=== PATIENT | male | born 1965 | race Caucasian/White ===

== ENCOUNTER 2021-04-06 07:48 | Outpatient (CLI) | payer BC, SELFPAY ==
--- NOTE | 2021-04-06 07:59 | ECG_ITS ---
Measurements Intervals [place] Rate: 58 P: 60 W[place]: 184 QRS: 8 QRSD: 120 T: 38 QT: 379 QTc: 374 Interpretive Statements SINUS BRADYCARDIA RIGHT BUNDLE BRANCH BLOCK TYPE 3 BRUGADA PATTERN (NON-DIAGNOSTIC) [COVED/SADDLEBACK ST ELEVATION > 0.1mV IN 2 OF V1-3] NO PREVIOUS ECG AVAILABLE FOR COMPARISON Electronically Signed On 04-06-2021 12:26:34 MANAGER ED by Pako Connor M.D.
== END 2021-04-06 07:49 | disposition home or self-care (01) ==
LOC: ANHSURGERY 07:53
PROVIDERS: PCP Internal Medicine; Visit Provider Urology
DX: E78.5 Hyperlipidemia, unspecified (principal); R00.1 Bradycardia, unspecified; I45.10 Unspecified right bundle-branch block; R94.31 Abnormal electrocardiogram [ECG] [EKG]
CPT/HCPCS: 93005

== ENCOUNTER 2021-04-08 00:31 | Day surgery (SDC) | payer BC, SELFPAY ==
[2021-04-02 11:12] VITALS: BMI 27.8
--- NOTE | 2021-04-02 11:21 | PC.NURSE ---
Report to the Outpatient Waiting Room, entrance under the green pavilion located off [facility], at time 6:00 on date 04/08/21. OR Time: 7:30. - You and your visitor will be asked a series of questions to screen for COVID 19 for your protection. - A mask is required within the hospital. One visitor will be allowed to accompany the patient into the hospital. Patients visitor will be instructed to remain with patient at all times or leave the building. We will allow the visitor to come back to the postoperative area when patient is ready. Preoperative COVID Testing Requirements: No COVID Test needed if: (proof is required; if not received patient will have Rapid Test prior to entry) - Patient has received COVID Vaccine at least 14 days prior to procedure date or - Patient has positive COVID test result within last 90 days of surgery date. COVID Test needed if above criteria is not met Patients may have clear liquids (water, carbonated beverages, clear teas, apple juice) until 3 hours prior to surgery (4:30) with a maximum of 20 ounces. - No food from midnight until time of surgery Take the following medications with a SIP of water the morning of surgery: ATENOLOL Medications to discontinue per physician: VITAMINS/SUPPLEMENTS Date to take last dose: 04/04/21 STOP PLAVIX 7 DAYS PRIOR TO PROCEDURE Please no make-up, nail spanish, hairspray, perfume, deodorant, or body powder the day of surgery. No jewelry (including any body piercings) or valuables the day of surgery, leave them at home. Please take a shower or bath the night before, or the morning of, surgery with an antibacterial soap. Wear comfortable, loose fitting clothing. - Jewelry must be removed prior to entering the operating room. Rings and piercings that are not removed may be cut off. - The hospital will not accept responsibility for valuables. - Please leave all valuables, including medications, at home the day of surgery. If you are going home after surgery, a licensed corporate driver must drive you home. - NO public transportation without another adult. - We recommend that an adult stay with you for 24 hours following discharge. - We also recommend that you do not drive, make important decision, drink alcoholic beverages, or take any drugs that were not prescribed by your health care provider for at least 24 hours after your discharge time. Follow any additional instructions given to you from your surgeon. Telephone instructions given to CHEMA NALLELY and asked if any additional questions and then verbalized understanding. Patient advised to call surgeon office or pre surgery nurse liaison [phone] if any additional questions.
[2021-04-08] VITALS (9 sets, daily range): BP systolic 105–193; BP diastolic 58–96; PULSE 54–61; RESP 10–18; TEMP 36.1–36.6; O2SAT 98–100
--- NOTE | 2021-04-08 06:28 | WPDHPUPDATE1 ---
History and Physical Update Update Date/Time: 04/08/21 06:28 History and Physical has been reviewed, including an updated exam of the patient. There are NO changes in the patient's condition. Risks, benefits, and alternatives have been discussed and questions answered. Patient agrees to proceed with procedure.
[2021-04-08] MEDS: LACTATED RINGERS 1,000 ML 30 ML IV CONT ×2 (06:30→08:42)
--- NOTE | 2021-04-08 07:09 | P.PNAN_ITS ---
Anes - Initial Pre Proc Eval Procedure: Operation Date: 04/08/21 07:30 Proposed Procedures p Urolift - Lawrence Calle MD Date/Time: 04/08/21 07:09 Surgeon: Lawrence Calle MD Pre Op Diagnosis: bph Patient Data Age: 55 Gender: M Height: 1.83 m Weight: 95.2 kg Last Vital Signs Temp 36.1 C L 04/08/21 06:10 Pulse 61 04/08/21 06:10 Resp 16 04/08/21 06:10 BP 155/80 H 04/08/21 06:10 Pulse Ox 98 04/08/21 06:10 Allergies Allergy/AdvReac Type Severity Reaction Status Date / Time No Known Allergies Allergy Unverified 04/08/21 06:14 Home Medications Medication Instructions Recorded Confirmed Type atenolol 12.5 mg PO DAILY 04/02/21 04/08/21 History clopidogrel [Plavix] 75 mg PO DAILY 04/02/21 04/08/21 History ezetimibe 10 mg PO DAILY 04/02/21 04/08/21 History fenofibric acid (choline) 135 mg PO DAILY 04/02/21 04/08/21 History [Trilipix] omega 9-xin-bgi-fish oil [Fish Oil] 1 cap PO BID 04/02/21 04/08/21 History ramipril 10 mg PO DAILY 04/02/21 04/08/21 History rosuvastatin [Crestor] 20 mg PO DAILY 04/02/21 04/08/21 History Patient hx anesthesia problems: none Family hx anesthesia problems: none Results Review: All pre-operative results and documents have been reviewed as part of the pre-operative evaluation. [facility] Past Medical History Medical History CAD (coronary artery disease) Hyperlipidemia Hypertension Surgical History Surgical History Stented coronary artery Social History Social History Smoking status: Never smoker Smokeless tobacco user: chewing tobacco Alcohol intake: current Drinks per week: 12 Alcohol use details: BEER Substance use: never Substance use type: does not use Living arrangements: with family Spiritual care concerns: No Anes - Eval Final PreProcedure Day of Procedure 04/08/21 07:09 Patient weight: overweight Heart: regular rate and rhythm Lungs: clear to auscultation Airway: Mallampati scale class II Neurological: alert and oriented Last oral intake: >/= 8 hours ASA classification: III Emergent: no Anesthetic plan: proceed Anesthesia type and monitoring: general LMA and standard monitoring Results Review: All pre-operative results and documents have been reviewed as part of the pre-operative evaluation. Informed Consent: The patient's anesthetic plan and its attendant risks and benefits were discussed with the patient/family/POA. Questions were solicited and answers provided to the satisfaction of the patient/family/POA.
[2021-04-08] MEDS: ceFAZolin 2 GM/D5W 50 ML 2 GM/50 ML BAG IVPB (07:23)
[2021-04-08] MEDS: LIDOCAINE HCL 2% GEL UROJET 10 ML PKG MUCOUS MEM (07:40)
--- NOTE | 2021-04-08 07:50 | P.OP_ITS ---
Procedure Note - Detailed Date of Procedure 04/08/21 Pre-op Diagnosis BPH Post-op Diagnosis same Procedure Performed Urolift Surgeon Lawrence Calle MD Anesthesia general Description of Procedure The patient was prepped and draped in a routine fashion after the uneventful induction of a general LMA anesthetic. A 20F cystoscope was inserted into the bladder. The cystoscopy bridge was replaced with a UroLift delivery device. The first treatment site was the patient's right side approximately 1.5cm distal to the bladder neck. The distal tip of the delivery device was then angled laterally approximately 20 degrees at this position to compress the lateral lobe. The trigger was pulled, thereby deploying a needle containing the implant through the prostate. The needle was then retracted, allowing one end of the implant to be delivered to the capsular surface of the prostate. The implant was then tensioned to assure capsular seating and removal of slack monofilament. The device was then angled back toward midline and slowly advanced proximally (typically 3 to 4 mm) until cystoscopic verification of the monofilament being centered in the delivery bay. The urethral end piece was then affixed to the monofilament thereby tailoring the size of the implant. Excess filament was then severed. The delivery device was then re-advanced into the bladder. The delivery device was then replaced with cystoscope and bridge and the implant location and opening effect was confirmed cystoscopically. The same procedure was then repeated on the left side, and two additional implants were delivered just proximal to the verumontanum, again one on right and one on left side of the prostate, following the same technique. Cystoscopy then revealed a persistent area of obstruction due to protrusion of the left lateral lobe and one additional implant were delivered in the mid-prostate on that side There fore, a total of 5 implants were delivered. A final cystoscopy was conducted first to inspect the location and state of each implant and second, to confirm the presence of a continuous anterior channel was present through the prostatic urethra with irrigation flow turned off. Because of bleeding I did opt to leave an indwelling 18F Gutierrez catheter which I intend to leave overnight]. At this point the cystoscope was removed and the patient was taken to the PACU in good condition. Estimated Blood Loss 5 Drains Yes Packing No Pathology none sent Complications No immediate complications Condition stable Disposition PACU
--- NOTE | 2021-04-08 08:39 | SUR.PHASEI ---
[id number] chase, pt having bladder spasm around the catheter which causing it to leak out around the meatus. dr chase had me remove the flannery catheter
[2021-04-08] MEDS: oxyCODONE HCL (*CRX) 5 MG TAB IR PO (09:45)
== END 2021-04-08 10:19 | disposition home or self-care (01) ==
PROVIDERS: PCP Internal Medicine; Visit Provider Urology
PROC: 0T7D8DZ Dilation of Urethra with Intraluminal Device, Via Natural or Artificial Opening Endoscopic (ICD-10-PCS; CPT 52441; principal; 2021-04-08 07:30)
DX: N40.1 Benign prostatic hyperplasia with lower urinary tract symptoms (principal); R35.0 Frequency of micturition; R35.1 Nocturia; R39.15 Urgency of urination; I10 Essential (primary) hypertension; E78.5 Hyperlipidemia, unspecified; I25.10 Atherosclerotic heart disease of native coronary artery without angina pectoris; Z79.02 Long term (current) use of antithrombotics/antiplatelets; Z95.5 Presence of coronary angioplasty implant and graft; F17.220 Nicotine dependence, chewing tobacco, uncomplicated
CPT/HCPCS: 52441; 52442 ×4; A9270; J0690; J1100; J2250; J2405; J2704; J3010; J7120; L8699

== ENCOUNTER 2022-07-15 07:10 | Outpatient (CLI) | payer BC, SELFPAY ==
--- NOTE | ~2022-07-15 | CT_ITS ---
Non-contrast CT scan of the Abdomen and Pelvis Clinical indication: BPH, urge continence Technique: 2.5 mm axial scans were obtained through the abdomen and pelvis without intravenous or or al contrast. Dose reduction technique was used on this scan by utilizing automated exposure control a nd iterative reconstruction technique. The dose-length product (DLP) was 942.21 mGy-cm. Findings: Images through the lung bases reveal multiple calcified bibasilar granulomas. There is no evidence of renal or ureteral calculi. The kidneys and the ureters are nondilated. The liver, spleen, pancreas, gallbladder, and adrenals appear normal.. There are atherosclerotic calc ifications of the aorta. There is no evidence of bowel obstruction. Normal appendix. Images through the pelvis were performed. There is no evidence of ascites or lymphadenopathy. Urinary bladder unremarkable. Prostate gland is enlarged. Impression: Enlarged prostate gland. Reviewed, dictated and finalized at [facility]. Impression: Enlarged prostate gland.
== END 2022-07-15 07:11 | disposition home or self-care (01) ==
PROVIDERS: PCP Physician Assistant Medical; Visit Provider Urology
DX: N40.0 Benign prostatic hyperplasia without lower urinary tract symptoms (principal)
CPT/HCPCS: 74176

== ENCOUNTER 2025-01-20 09:04 | Emergency (ER) | payer BC, SELFPAY ==
[2025-01-20 09:16] VITALS: BP 141/62; PULSE 63; RESP 16; TEMP 36.6; O2SAT 96
--- NOTE | 2025-01-20 09:26 | ED.SKABFB ---
HPI - Skin/Abscess/Foreign Bdy General Chief complaint: Skin/Abscess/Foreign Body Stated complaint: rash Time Seen by Provider: 01/20/25 09:27 Source: patient and RN notes reviewed Mode of arrival: ambulatory Limitations: no limitations History of Present Illness HPI narrative: 59-year-old male presents with concern for ongoing rash. Reports he started having a rash about 4-6 weeks ago after he came back from [place] and then went camping. Reports he has also been [place] in the [place]. Reports the rash started on his lower abdomen, spread to his entire abdomen and is now on his back and arms. Reports he saw his doctor about 10 days ago who gave him a Medrol Dosepak and also treated him with permethrin cream because the patient's was worried about bed bugs or dust mites. He reports he used both the permethrin cream and a steroid pack without any relief in the rash has gotten worse. He denies any known bug bites, tick bites, exposure to anything specific. He reports he has had chills in the last 2 days but otherwise denies any fever body aches sweats, general malaise, upper respiratory infection symptoms. He has not taken antihistamines. He has changed his laundry detergent and soaps to hypoallergenic products. MD complaint: rash Related Data Home Medications ?Medication ?Instructions ?Recorded ?Confirmed ?Last Taken ?Type omega 5-rid-kjf-fish oil 60 mg-90 1 cap PO BID 04/02/21 01/09/25 Unknown History mg-500 mg capsule (Fish Oil) amlodipine 5 mg tablet 5 mg PO DAILY 03/24/23 01/09/25 Unknown History Allergies Allergy/AdvReac Type Severity Reaction Status Date / Time No Known Allergies Allergy Verified 01/20/25 09:16 Review of Systems Review of Systems: CONSTITUTIONAL: Denies malaise, sweats, or fever. Reports chills for 2 days EYES: Denies redness, or discharge. ENT: Denies rhinorrhea, congestion, swollen lips, swollen tongue CARDIOVASCULAR: Denies chest pain, palpitations, or edema. RESPIRATORY: Denies cough or dyspnea. GASTROINTESTINAL: Denies abdominal pain, nausea, vomiting SKIN: Reports itchy rash on his torso and arms MUSCULOSKELETAL: Denies joint pain or myalgia. NEUROLOGIC: Denies headache. All systems reviewed & are unremarkable except as noted in HPI and below PMFSH Past Medical History Medical History Pre-diabetes Carotid artery stenosis bilateral carotid endarterectomies 2005 Hypertension CAD (coronary artery disease) stents x2 May 2005 Surgical History Surgical History Stented coronary artery Social History Social History Social History: 06/19/24 Patient declined SDOH Smoking status: Never smoker Smokeless tobacco user: chewing tobacco Alcohol intake: current Drinks per week: 12 Alcohol use details: BEER Substance use: never Substance use type: does not use Lack of Transportation: No Lack of Food: Never True Current Housing: I Have Housing Concerned About Future Housing: No Difficulty Paying Gas/Electric Bills: No Difficulty Paying for Meds: No Currently Unemployed: No Difficulty w/ Childcare or Family Care: No Living arrangements: with family Occupation/Education: occupation Gender identity (if verbalized by the patient): Male Sexual Orientation (if Verbalized by the Patient): Straight or Heterosexual Spiritual care concerns: No Comments At time of signature, agree with nursing past medical, surgical, social and family history. There is no relevant family history pertinent to the presenting complaint Exam Narrative: GENERAL: Well-appearing, well-nourished, and in no acute distress. HEAD: Normocephalic, atraumatic. EYES: PERRLA, conjunctivae clear, and EOMI. ENT: Mucous membranes moist. Oropharynx without edema, erythema or lesions. NECK: Supple. No lymphadenopathy CHEST: Clear to auscultation. No respiratory distress. HEART: Regular rate and rhythm. SKIN: Warm, dry. Fine papular rash noted to the abdomen chest, patches of erythematous papules noted to the back and arms NEURO: Alert and oriented x3. PSYCH: Normal mood and affect Course Course Emergency Course: Patient is aware of diagnosis, understands and agrees to treatment plan. Anticipatory guidance given. Patient agrees to follow-up as directed and is aware of reasons to seek care at the emergency department. Portions of this record may have been created with voice recognition software Level of Care: Express Care Visit Vital Signs Vital signs: Vital Signs Temperature 97.9 F 01/20/25 09:16 Pulse Rate 63 01/20/25 09:16 Respiratory Rate 16 01/20/25 09:16 Blood Pressure 141/62 H 01/20/25 09:16 Pulse Oximetry 96 01/20/25 09:16 Oxygen Delivery Room Air 01/20/25 09:16 Temperature 97.9 F 01/20/25 09:16 Pulse Rate 63 01/20/25 09:16 Respiratory Rate 16 01/20/25 09:16 Blood Pressure 141/62 H 01/20/25 09:16 Pulse Oximetry 96 01/20/25 09:16 Oxygen Delivery Room Air 01/20/25 09:16 MDM Differential Diagnosis Differential Diagnosis: I evaluated this patient in the [facility]. History is obtained from patient who is an independent historian and physical exam was performed.? Available medical records were reviewed. ? Exam findings and relevant testing show no acute concerns or changes; patient is non-toxic appearing and is in no distress. ? Does not appear at this time to be erythema multiforme, bullous, SJS, TEN; no evidence at this time to suggest RMSF, endocarditis or Lyme disease; patient looks well, nontoxic and is tolerating oral intake; no neurologic signs or symptoms; no headache, photophobia or neck pain; afebrile; appropriate for initial outpatient treatment; discussed the importance of follow-up, patient agrees; question, viral exanthema, contact dermatitis, allergic dermatitis, eczema, urticaria. No soft palate or uvula edema, no tongue, lip edema or other mucosal involvement, no respiratory compromise, no stridor, no wheezing, no wheezing, no history of syncope, no hypotension, no nausea, vomiting, or diarrhea. Instructed patient to go to nearest ER immediately for any worsening symptoms including but not limited to: fever, spreading rash, pain, sore throat, headache, dizziness, chest pain, trouble breathing, or any symptoms concerning to the patient. Differential diagnosis and treatment plan were discussed with the patient. Patient agrees with discussion and after shared medical decision making agrees with plan of care. All questions were answered to the patient's satisfaction. Patient is appropriate for outpatient treatment and follow-up. Discharge Plan Discharge Clinical Impression: Rash Patient Disposition: Home Condition: Stable Instructions: Acute Rash (ED) Additional Instructions: You may take 1-2 tabs of Benadryl (diphenhydramine) every 6 hours - this medicine may make you tired, so know how it affects you before you drive, work, make important decisions. You may also take a non-drowsy antihistamine such as Zyrtec or Deb once daily; you may double this dose for maximum effect. Medications that block stomach acid, such as Pepcid, also block histamine and can be helpful; take this once daily. Wash the area with gentle soap and water only. Use skin cream as prescribed to reduce itchiness. Take prednisone as directed. Avoid scratching when possible to prevent worsening of the condition and disruption of the skin that could lead to bacterial infection To relieve itching, place a cool washcloth or some ice over the area that itches, rather than scratching Follow up with primary care provider. Seek ER if you have trouble breathing, become hoarse, or start wheezing, develop belly cramps, vomiting or feel dizzy. 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
== END 2025-01-20 09:47 | disposition home or self-care (01) ==
PROVIDERS: Emergency Provider Nurse Practitioner; PCP Physician Assistant Medical
DX: R21 Rash and other nonspecific skin eruption (principal); F17.220 Nicotine dependence, chewing tobacco, uncomplicated; I25.10 Atherosclerotic heart disease of native coronary artery without angina pectoris; I10 Essential (primary) hypertension; I65.23 Occlusion and stenosis of bilateral carotid arteries; R73.03 Prediabetes; Z95.5 Presence of coronary angioplasty implant and graft
CPT/HCPCS: 99213; G0463